=== PATIENT | female | born 1995 ===

== ENCOUNTER 2017-01-14 12:37 | Emergency (ER) | payer OTHER ==
[2017-01-14] MEDS ORDERED: LIDOCAINE HCL 1% MDV SOL SC ONE (13:00)
[2017-01-14 14:22] VITALS: RESP 18; TEMP 97
[2017-01-14 16:12] VITALS: BP 147/73; PULSE 102; O2SAT 98
== END 2017-01-14 14:10 | disposition home or self-care (01) | DRG 605 ==
LOC: ED 12:37
DX: S81.811A Laceration without foreign body, right lower leg, initial encounter (principal); W25.XXXA Contact with sharp glass, initial encounter
CPT/HCPCS: 12001; 99284